=== PATIENT | male | born 1990 | race African-American/Black ===

== ENCOUNTER 2022-02-14 13:12 | Outpatient (CLI) | payer OTHER ==
--- NOTE | 2022-02-16 10:00 | MRI Report ---
PROCEDURE: KNEE WO - RT INDICATIONS: KNEE PAIN TECHNIQUE: Noncontrast sagittal PD fast spin echo and T2 fast spin echo with fat saturation, sagittal 3-D gradie nt sequence with fat saturation; coronal T1 spin echo and PD fast spin echo with fat saturation, and axial PD fast spin echo with fat saturation through the knee. COMPARISON: None. FINDINGS: Image quality: Excellent. Menisci: The medial meniscus is intact. Signal abnormality involving posterior horn of lateral menis cus is seen extending to inferior articulating surface. The meniscal root ligaments appear intact. Cruciate ligaments: The anterior and posterior cruciate ligaments appear intact. Medial structures: The medial collateral ligament appears intact. The posterior oblique ligament, s emimembranosus tendon insertions, and oblique popliteal ligament, and meniscocapsular junction appear intact. Visualized portions of the pes anserinus tendons appear normal. No abnormal bursal fluid. Lateral structures: The lateral collateral ligament, long and short heads of the biceps femoris tend on appear intact. The popliteus tendon appears normal; the popliteofibular ligament appears intact. Iliotibial band appears normal. Anterior structures: Distal quadriceps tendinosis at its superior patella insertion is seen. Patellar tendon is intact. Patellar alignment is normal. No edema in the infrapatellar fat pad. Bones and cartilage: Marrow edema involving the midportion of patella is seen. Moderate grade chondro malacia patella involving lateral facet and apex of patella cartilage is noted with underlying subcor tical cystic area suggestive of osteochondral injuries. Focal area of high-grade chondromalacia in ad jacent trochlear cartilage is also noted with underlying subcortical cystic area and surrounding khadijah a involving anterior aspect of lateral femoral condyle. Focal moderate to high-grade chondromalacia w ith underlying osteochondral injury involving posterior weight-bearing portion of lateral femoral con dyle is also seen. Joint space: There is small knee joint fluid. No Castro's cyst. Normal appearing synovial plicae ar e incidentally noted. IMPRESSION: 1. 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 2. Focal moderate to high-grade chondromalacia and underlying osteochondral injury involving posterio r lateral femoral condyle weightbearing portion. No fracture or dislocation. Small joint effusion, no gross loose bodies. 3. Subtle oblique tear involving posterior horn of lateral meniscus extending to inferior articulatin g surface. No focal medial meniscal tear. 4. Cruciate ligaments are intact. 5. Distal quadriceps tendinosis. Patellar tendon is intact. Reviewed by: Collin Hawk MD on 02/16/2022 9:[address] [facility] Approved by: Collin Hawk MD on 02/16/2022 9:[address] [facility] Station ID: [id number]
== END 2022-02-14 13:13 | disposition home or self-care (01) ==
LOC: DI 13:12
PROVIDERS: ATTEND Physician Assistant
DX: M22.41 Chondromalacia patellae, right knee (principal); M25.461 Effusion, right knee; S83.281A Other tear of lateral meniscus, current injury, right knee, initial encounter; M67.863 Other specified disorders of tendon, right knee